=== PATIENT | female | born 1970 | race Two or more races ===

== ENCOUNTER 2024-02-22 06:45 | Day surgery (SDC) | payer OTHER, MEDICAID, SELFPAY ==
--- NOTE | 2024-02-19 12:17 | ESHP_ITS ---
RE: SILVESTRE WEISS : 1970 DATE OF ADMISSION: 02/22/2024 HISTORY OF PRESENT ILLNESS: This is a 53-year-old 2, para 2, who underwent an IUD removal in the office, which came out in fragments. Pelvic ultrasound confirms that there is a remaining fragment of the IUD in the endocervical canal. The patient has no symptoms, but she presents for hysteroscopic removal of IUD fragment. ALLERGIES: NO KNOWN DRUG ALLERGIES. MEDICATIONS: None. PAST MEDICAL HISTORY: None. SOCIAL HISTORY: Denies any alcohol, drug use or smoking. FAMILY HISTORY: Mother has hypertension. PAST SURGICAL HISTORY: Denies. REVIEW OF SYSTEMS: She denies any chest pain, palpitations, cough, fever, shortness of breath or lower extremity pain. PHYSICAL EXAMINATION: VITAL SIGNS: Blood pressure 135/69, heart rate 90, respirations 18, temperature 98.2, weight 159 pounds. HEENT: Oropharynx and sclerae are clear. LUNGS: Clear to auscultation bilaterally. HEART: Regular rate and rhythm. ABDOMEN: Nontender. EXTREMITIES: Nontender. SKIN: No gross rashes or lesion. NEUROLOGIC: No focal deficit. ASSESSMENT: Retained IUD fragment in the endocervical canal. PLAN: Hysteroscopy, removal of IUD fragment. Informed consent was obtained. The patient was made aware of the risks, complications, alternatives, and benefits of the proposed procedure. She agrees. She is aware that this possibility the fragment may not be able to be removed due to being deeply embedded if not visualized through the endocervix or the hysteroscope. DT: 09:38:00 TT: 11:12:00 Ref: [id number] - TID: [id number]
[2024-02-21 10:22] VITALS: BMI 30.2
[2024-02-21 10:56] LABS: Basophils # (Auto) 0.1 Thou/mm3 (0.0-0.2); Basophils % (Auto) 1 % (0-2.5); Eosinophils # (Auto) 0.2 Thou/mm3 (0.0-0.5); Eosinophils % (Auto) 3 % (0-10); Hematocrit 39.5 % (36.0-46.0); Hemoglobin 13.2 g/dL (12.0-16.0); Immature Granulocytes % (Auto) 0 % (0-0); Lymphocytes # (Auto) 1.6 Thou/mm3 (1.0-4.8); Lymphocytes % (Auto) 35 % (10-50); Mean Corpuscular HGB Conc 33.4 g/dl (31.0-37.0); Mean Corpuscular Hemoglobin 29.4 pg (25.0-35.0); Mean Corpuscular Volume 88 fL (80-100); Monocytes # (Auto) 0.3 Thou/mm3 (0.0-0.8); Monocytes % (Auto) 6 % (0-12); Neutrophils # (Auto) 2.6 Thou/mm3 (1.8-7.7); Neutrophils % (Auto) 55 % (37-80); Nucleated Red Blood Cell % 0 /100 WBC (0); Platelet Count 314 Thou/mm3 (140-440); RDW Standard Deviation 41.1 fL (36.4-46.3); Red Blood Count 4.49 Miln/mm3 (4.00-5.20); White Blood Count 4.7 Thou/mm3 (3.6-11.0)
[2024-02-21 11:10] LABS: Partial Thromboplastin Time 25.5 Seconds (22.0-36.0); Prothrombin Time 10.7 Seconds (9.0-12.2)
[2024-02-21 11:14] LABS: Alanine Aminotransferase 18 U/L (10-49); Albumin, Serum 4.7 gm/dL (3.5-5.0); Albumin/Globulin Ratio 1.7 (1.2-2.2); Alkaline Phosphatase 83 U/L (46-116); Anion Gap 7 (7-16); Aspartate Amino Transferase 19 U/L (0-34); BUN/Creatinine Ratio 17 Ratio (12-20); Beta HCG,Quantitative 4 mIU/mL (<5.0); Bilirubin,Total 0.5 mg/dL (0.3-1.2); Blood Urea Nitrogen 12 mg/dL (9-23); Calcium 10.3 mg/dL (8.3-10.6); Calcium (Corrected) 10.3 mg/dL (8.5-10.1); Carbon Dioxide 26.6 mMol/L (20.0-31.0); Chloride 108 mMol/L (98-107); Creatinine (Component) 0.7 mg/dL (0.6-1.3); Estimated Creatinine Clearance 86.7 mL/min (>60); Globulin 2.8 gm/dL (2.3-3.5); Glucose 98 mg/dL (74-106); Osmolality,Calculated 282 (275-295); Potassium 4.6 mMol/L (3.4-5.1); Sodium 142 mMol/L (136-145); Total Protein 7.5 gm/dL (5.7-8.2); eGFR > 60 See Note
[2024-02-22] VITALS (7 sets, daily range): BP systolic 103–138; BP diastolic 69–83; PULSE 69–90; RESP 12–19; TEMP 36.3–36.5; O2SAT 98–100; BMI 30.2
--- NOTE | 2024-02-22 09:27 | SUR.PHASEI ---
0927: Pt. arrived with oral airway in place, vitals stable, breathing unlabored, no signs of distress, peripad in place CDI, no active bleed noted, report received from MD Freeman and Na CARRANZA.
--- NOTE | 2024-02-22 10:18 | SUR.PHASEII ---
1018: Pt. AAOx4, vitals stable, breathing unlabored, no complaint of pain or nausea, peripad in place CDI, no active bleed noted, pt. tolerated sips of water well, pt. ambulated to wheelchair with steady gait and no assist, no complications. Gave discharge instructions to the pt. and her ride, both verbalized understanding and had no further questions. Pt. left with all personal belongings.
--- NOTE | 2024-02-22 12:13 | ESOP_ITS ---
RE: SILVESTRE WEISS : 1970 DATE OF OPERATION: 02/22/2024 PREOPERATIVE DIAGNOSIS: Retained intrauterine device fragment. POSTOPERATIVE DIAGNOSIS: Retained intrauterine device fragment. PROCEDURE PERFORMED: Hysteroscopy and removal of intrauterine device fragment. SURGEON: Jono French DO LUMBER LOADER: None. ANESTHESIA: General. ANESTHESIOLOGIST: Dr. Freeman. ESTIMATED BLOOD LOSS: 1 mL. COMPLICATIONS: None. COUNTS: Correct. PATHOLOGY: Fragment of Paragard intrauterine device. FINDINGS: A normal uterine cavity sounds to 7.5 cm and intrauterine device fragment was visualized in the endocervical os. DESCRIPTION OF PROCEDURE: After proper informed consent was obtained and the patient made aware of the risks, complications, alternatives, benefits of the proposed procedure she was taken to the operating room where she underwent induction of general anesthesia. She was placed in the dorsal lithotomy position. She was prepped and draped in the usual sterile fashion. A timeout was performed and the patient underwent exam under anesthesia. A tenaculum was placed on the anterior lip of the cervix. The cervix was dilated to accommodate the 5.5 mm Omni hysteroscope. The hysteroscope was then utilized to visualize the endocervix and uterine cavity and the above findings noted. Using the grasper device through the working channel of the hysteroscope, the intrauterine device fragment was grasped and removed from the uterine cavity. It was not embedded in any way in the wall of the uterine cavity. The intrauterine device fractured at the junction of the cross bars and stem. The fragment was removed completely and intact. There was no bleeding noted at the end of the procedure. All instruments were removed from the vagina. She was reversed from general anesthesia in the supine position and transferred to the recovery room in stable condition. She tolerated the procedure well. Counts were correct. I discussed with the patient. She was transferred to the recovery room in stable condition. Counts were correct. DT: 09:39:49 TT: 12:07:00 Ref: [id number] - TID: [id number]
== END 2024-02-22 10:18 | disposition home or self-care (01) ==
PROVIDERS: PCP Family Medicine; Referring Provider Specialist; Visit Provider Specialist
PROC: 0UJD8ZZ Inspection of Uterus and Cervix, Via Natural or Artificial Opening Endoscopic (ICD-10-PCS; CPT 58555; principal; 2024-02-22 08:45)
DX: T83.39XA Other mechanical complication of intrauterine contraceptive device, initial encounter (principal)
CPT/HCPCS: 58562; 36415; 80053; 84702; 85025; 85610; 85730; 86850; 86900; 86901; A4217; A4649; J0690; J1100; J1885; J2250; J2405; J2704; J3010